=== PATIENT | male | born 1975 | race Caucasian/White ===

== ENCOUNTER 2021-04-19 17:30 | Inpatient (IN) ==
[2021-04-19] MEDS ORDERED: LABETALOL HCL IV 5 MG/ML 20ML IV STA ×2 (17:42→18:33)
[2021-04-19] MEDS ORDERED: DIPHTHERIA/TETANUS/PERTUSSIS 0.5 ML SYR/VIAL IM ONE (17:42)
[2021-04-19] MEDS ORDERED: SODIUM CHLORIDE 0.9% 1000ML 1,000 ML IV ONE (17:42)
--- NOTE | 2021-04-19 17:50 | Emergency Department Note ---
Impression & Plan Seizure, Hypertension, Acute hyponatremia, Noncompliance with medications ED Provider Note NAME: WILLEM SOLIS AGE: 45 SEX: M : 1975 ARRIVES VIA: Ambulance INFORMANT: [Patient][ems] ED PROVIDER(S): [Ammon Means MD] CHIEF COMPLAINT: Seizure HISTORY OF PRESENT ILLNESS: The patient is a 45-year-old male with a history of hypertension. He admits he has not taken his hypertension meds in a long time. 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 He was talking to coworkers and suddenly just collapsed. The patient had 4 minutes of tonic-clonic seizure-like activity. He was confused after. There was a reported post ictal phase. His mental status has cleared though compared to earlier. The patient denies any complaints currently. He is unsure of his last tetanus immunization. He denies any headache or neck pain or back pain. He has no chest pain. He cannot recall what happened. He remembers waking up before he got into the ambulance. The patient states that he has been in baseline health. He has had no cough or cold or congestion. He has had no previous seizures. There is no family history of seizure activity. The patient did bite his tongue. He did not lose bowel or urine continence. REVIEW OF SYSTEMS: See HPI for pertinent positives and negatives. A total of ten systems were reviewed and were otherwise negative. PMHx/PSHx: See Below SOCIAL HISTORY: See Below. PHYSICAL EXAM: GENERAL: Patient is in no acute distress. HEENT: No acute trauma, normocephalic atraumatic, mucous membranes moist, no nasal congestion, no scleral icterus. There are contusions and subtle abrasions to the tongue consistent with a bite. No laceration requiring repair. NECK: No stridor, no adenopathy, no meningismus, trachea is midline. LUNGS: Clear to auscultation bilaterally, no wheeze, no rhonchi, breath sounds equal. HEART: Tachycardic, regular rhythm, no murmurs. ABDOMEN: Soft, nontender, bowel sounds positive, no hernias, no peritonitis. EXTREMITIES: No cyanosis or edema, full range of motion of all the joints without pain or difficulty, no signs for acute trauma. NEUROLOGIC: He knew the year was 2020. He was wrong on the date. It is March and he thought it was January. He did know he was at the hospital, he knew his name. He was awake and interactive. No focal motor deficits. SKIN: No rash, no jaundice, no diaphoresis. DIFFERENTIAL DIAGNOSIS: Infection, dehydration, metabolic abnormality, hypo/hyperglycemia, electrolyte disturbance, anemia, hypoxia, cardiac sources, intracerebral event, seizure, medication noncompliance, uncontrolled hypertension, toxicologic issues, stroke, TIA, as well as other pathologies. EMERGENCY DEPARTMENT COURSE/PROCEDURES: ECG: Indication was tachycardia and seizure. The ECG shows a sinus tachycardia with an incomplete right bundle branch block. 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 The rate is 114. There is no ST elevation, no PVCs. QTC is 490. Compared to an ECG from 06 July 2018, the findings for septal infarct are no longer present, there is a criteria now for an inferior infarct. The rate has increased. Continuous Cardiac Monitoring: An order was placed for continuous cardiac monitoring. The monitor shows a rate of 124 with sinus tachycardia. Critical Care Note: I have personally spent 56 minutes of critical care time in the direct management of this patient. This includes bedside care, interpretation of diagnostic studies, and testing, discussion with consultants, patient, and family members, and other required patient management activities. This 56 minutes is in excess of all separately billable procedures. MEDICAL DECISION MAKING: There is no leukocytosis. There is a normal hemoglobin and platelet count. Renal panel testing shows a low sodium. No kidney failure. There were some elevated liver enzymes although, the bilirubin was normal. Total CK was slightly elevated at 800, consistent with his reported seizure activity. P atient appeared to be in a euthyroid state. Prolactin level was slightly elevated which would be consistent with seizure. ECG shows a sinus tachycardia, no acute ST elevation. Cardiac enzyme testing x1 is not consistent with acute cardiac injury. Brain CT shows no acute bleed or mass-effect. Chest x-ray does not show pneumonia or CHF. The patient presents after a seizure that lasted for about 4 minutes. He has abrasions and some small lacerations of the right posterior elbow. This wound was cleansed and dressed. The patient was given a tetanus booster IM. The patient's blood pressure was quite high. He received IV labetalol, a second dose of IV labetalol was given. He received IV hydralazine. Patient was given IV Keppra, 2000 mg. The patient has not had any further seizure-like activity. He now has a better blood pressure than when he first arrived. Given the seizure, given the uncontrolled hypertension, given the hyponatremia, I do think a hospital stay is warranted. I spoke with the patient and sample case porter. The on-call hospitalist was consulted. Past Med/Surg History Medical History Hypertension Family History (Updated 07/06/18 @ 16:21 by Steven Lora) Other Hypertension Social History Smoking Status: Current some day smoker Tobacco Type: Cigarettes Feels Safe at Home: Yes Allergies Allergies Allergy/AdvReac Type Severity Reaction Status Date / Time No Known Allergies Allergy NONE Verified 04/19/21 17:52 Home Meds Home Medications Medication Instructions Recorded Confirmed No Known Home Medications 04/19/21 04/19/21 Results & Data (ED) Vital Signs Vital Signs - 24 hr 04/19/21 17:34 04/19/21 17:38 04/19/21 18:00 Temperature 36.9 C Temperature Source Oral Pulse Rate 118 H Pulse Rate from SpO2 Sensor 118 H 92 H Respiratory Rate 19 Blood Pressure 245/140 H 177/114 H Blood Pressure [Right Arm] Blood Pressure Mean 175 135 Blood Pressure Mean [Right Arm] Blood Pressure Position [Right Arm] Pulse Oximetry 98 95 Oxygen Delivery Method Room Air Room Air Sepsis Recent Fever Within 48 Hours No Sepsis New/Unexplained Change in Mental Status No Sepsis Action Taken by Nursing No Action Required 04/19/21 18:30 04/19/21 18:43 04/19/21 19:01 Temperature Temperature Source Pulse Rate 92 H 90 Pulse Rate from SpO2 Sensor 93 H Respiratory Rate 17 Blood Pressure 169/117 H Blood Pressure [Right Arm] Blood Pressure Mean 134 Blood Pressure Mean [Right Arm] Blood Pressure Position [Right Arm] Pulse Oximetry 95 97 Oxygen Delivery Method Room Air Sepsis Recent Fever Within 48 Hours Sepsis New/Unexplained Change in Mental Status Sepsis Action Taken by Nursing 04/19/21 19:14 04/19/21 19:30 04/19/21 20:00 Temperature Temperature Source Pulse Rate 85 84 Pulse Rate from SpO2 Sensor 86 84 Respiratory Rate 17 16 Blood Pressure 224/159 H 178/105 H Blood Pressure [Right Arm] 201/118 H Blood Pressure Mean 180 129 Blood Pressure Mean [Right Arm] 145 Blood Pressure Position [Right Arm] Lying Pulse Oximetry 95 96 Oxygen Delivery Method Sepsis Recent Fever Within 48 Hours Sepsis New/Unexplained Change in Mental Status Sepsis Action Taken by Nursing 04/19/21 20:30 04/19/21 21:00 04/19/21 21:30 Temperature Temperature Source Pulse Rate 86 100 H 88 Pulse Rate from SpO2 Sensor 84 91 H Respiratory Rate 19 22 19 Blood Pressure 147/111 H 169/105 H 173/102 H Blood Pressure [Right Arm] Blood Pressure Mean 123 126 125 Blood Pressure Mean [Right Arm] Blood Pressure Position [Right Arm] Pulse Oximetry 98 94 Oxygen Delivery Method Sepsis Recent Fever Within 48 Hours Sepsis New/Unexplained Change in Mental Status Sepsis Action Taken by Nursing 04/19/21 22:00 04/19/21 22:30 04/19/21 23:02 Temperature Temperature Source Pulse Rate 80 90 87 Pulse Rate from SpO2 Sensor 93 H Respiratory Rate 14 22 20 Blood Pressure 162/104 H 140/108 H 176/107 H Blood Pressure [Right Arm] Blood Pressure Mean 123 118 Blood Pressure Mean [Right Arm] Blood Pressure Position [Right Arm] Pulse Oximetry 93 99 Oxygen Delivery Method Room Air Sepsis Recent Fever Within 48 Hours Sepsis New/Unexplained Change in Mental Status Sepsis Action Taken by Snf Medications Current Medication List: was personally reviewed by me Laboratory Data Attestation: I reviewed the patient's lab results. Result diagrams: 04/19/21 17:43 04/19/21 22:42 Lab Results 04/19/21 04/19/21 04/19/21 Range/Units 17:43 17:43 17:43 WBC 4.26 L (4.8-10.8) K/uL RBC 4.01 L (4.7-6.1) M/uL Hgb 14.4 (14.0-18.0) g/dL Hct 38.4 L (42-52) % MCV 95.8 (80-100) fL MCH 35.9 H (25-34) pg MCHC 37.5 H (32-36) g/dL RDW Std Deviation 43.6 (36.4-46.3) fL RDW Coeff of Carrie 12.4 (11.5-14.5) % Plt Count 165 (130-400) K/uL MPV 10.0 (7.4-10.4) fL Immature Gran % (Auto) 0.0 % Neut % (Auto) 74.9 % Lymph % (Auto) 14.6 % [place] % (Auto) 8.7 % Eos % (Auto) 0.2 % Baso % (Auto) 1.6 % Neut # (Auto) 3.19 (1.4-6.5) K/uL Lymph # (Auto) 0.62 L (1.2-3.4) K/uL [place] # (Auto) 0.37 (0.11-0.59) K/uL Eos # (Auto) 0.01 (0-0.5) K/uL Baso # (Auto) 0.07 (0-0.2) K/uL Immature Gran # (Auto) 0.00 (0.00-0.02) K/uL Sodium 128 L (136-145) mmol/L Potassium 3.5 (3.5-5.1) mmol/L Chloride 94 L (98-107) mmol/L Carbon Dioxide 24 (21-32) mmol/L Anion Gap 11.0 (3-11) BUN 6 L (7-18) mg/dl Creatinine 0.94 (0.6-1.4) mg/dl Est Cr Clr Drug Dosing 108.9 ml/min Est GFR ( Amer) 113.0 ml/min Est GFR (Non-Af Amer) 97.5 ml/min BUN/Creatinine Ratio 6.3 L (10-20) Glucose 104 H (70-99) mg/dl Osmolality (280-300) mOsm/kg Calcium 9.0 (8.5-10.1) mg/dl Magnesium 2.1 (1.8-2.4) mg/dl Total Bilirubin 0.9 (0.2-1) mg/dl AST 129 H (15-37) U/L ALT 132 H (12-78) U/L Alkaline Phosphatase 51 (45-117) U/L Total Creatine Kinase 831 H (39-308) U/L Troponin I < 0.015 (0-0.045) ng/ml Total Protein 7.6 (6.4-8.2) gm/dl Albumin 4.2 (3.4-5.0) gm/dl Globulin 3.4 (2.5-4.0) gm/dl Albumin/Globulin Ratio 1.3 (0.9-2) TSH 1.030 (0.300-4.500) uIu/ml Prolactin 20.48 ng/ml Urine Color Urine Appearance (Clear) Urine pH (4.5-7.5) Ur Specific [place] (1.000-1.030) Urine Protein (Negative) Urine Glucose (UA) (Negative) Urine Ketones (Negative) Urine Blood (Negative) Urine Nitrite (Negative) Urine Bilirubin (Negative) Urine Urobilinogen (Negative) Ur Leukocyte Esterase (Negative) Urine WBC (Auto) (0-5) /hpf Urine RBC (Auto) (0-4) /hpf U Hyaline Cast (Auto) (0-5) /lpf U Epithel Cells (Auto) (0-5) /lpf Urine Bacteria (Auto) (Negative) Urine Osmolality (500-800) mOsm/kg Ur Random Sodium mmol/L Urine Opiates Screen (Neg) Ur Methadone, Qual (Neg) Urine Barbiturates (Neg) Ur Phencyclidine (PCP) (Neg) U Amphetamin/Meth Scrn (Neg) MDMA (Ecstasy) Screen (Neg) U Benzodiazepines Scrn (Neg) Ur Cocaine Metabolite (Neg) U Marijuana (THC) Screen (Neg) COVID-19 Eval Order SARS-CoV-2 (PCR) (Negative) 04/19/21 04/19/21 04/19/21 Range/Units 17:43 18:00 18:00 WBC (4.8-10.8) K/uL RBC (4.7-6.1) M/uL Hgb (14.0-18.0) g/dL Hct (42-52) % MCV (80-100) fL MCH (25-34) pg MCHC (32-36) g/dL RDW Std Deviation (36.4-46.3) fL RDW Coeff of Carrie (11.5-14.5) % Plt Count (130-400) K/uL MPV (7.4-10.4) fL Immature Gran % (Auto) % Neut % (Auto) % Lymph % (Auto) % [place] % (Auto) % Eos % (Auto) % Baso % (Auto) % Neut # (Auto) (1.4-6.5) K/uL Lymph # (Auto) (1.2-3.4) K/uL [place] # (Auto) (0.11-0.59) K/uL Eos # (Auto) (0-0.5) K/uL Baso # (Auto) (0-0.2) K/uL Immature Gran # (Auto) (0.00-0.02) K/uL Sodium (136-145) mmol/L Potassium (3.5-5.1) mmol/L Chloride (98-107) mmol/L Carbon Dioxide (21-32) mmol/L Anion Gap (3-11) BUN (7-18) mg/dl Creatinine (0.6-1.4) mg/dl Est Cr Clr Drug Dosing ml/min Est GFR ( Amer) ml/min Est GFR (Non-Af Amer) ml/min BUN/Creatinine Ratio (10-20) Glucose (70-99) mg/dl Osmolality 267 L (280-300) mOsm/kg Calcium (8.5-10.1) mg/dl Magnesium (1.8-2.4) mg/dl Total Bilirubin (0.2-1) mg/dl AST (15-37) U/L ALT (12-78) U/L Alkaline Phosphatase (45-117) U/L Total Creatine Kinase (39-308) U/L Troponin I (0-0.045) ng/ml Total Protein (6.4-8.2) gm/dl Albumin (3.4-5.0) gm/dl Globulin (2.5-4.0) gm/dl Albumin/Globulin Ratio (0.9-2) TSH (0.300-4.500) uIu/ml Prolactin ng/ml Urine Color Urine Appearance (Clear) Urine pH (4.5-7.5) Ur Specific [place] (1.000-1.030) Urine Protein (Negative) Urine Glucose (UA) (Negative) Urine Ketones (Negative) Urine Blood (Negative) Urine Nitrite (Negative) Urine Bilirubin (Negative) Urine Urobilinogen (Negative) Ur Leukocyte Esterase (Negative) Urine WBC (Auto) (0-5) /hpf Urine RBC (Auto) (0-4) /hpf U Hyaline Cast (Auto) (0-5) /lpf U Epithel Cells (Auto) (0-5) /lpf Urine Bacteria (Auto) (Negative) Urine Osmolality (500-800) mOsm/kg Ur Random Sodium mmol/L Urine Opiates Screen (Neg) Ur Methadone, Qual (Neg) Urine Barbiturates (Neg) Ur Phencyclidine (PCP) (Neg) U Amphetamin/Meth Scrn (Neg) MDMA (Ecstasy) Screen (Neg) U Benzodiazepines Scrn (Neg) Ur Cocaine Metabolite (Neg) U Marijuana (THC) Screen (Neg) COVID-19 Eval Order Covid19 at [facility] SARS-CoV-2 (PCR) NEGATIVE (Negative) 04/19/21 04/19/21 04/19/21 Range/Units 20:10 20:10 20:10 WBC (4.8-10.8) K/uL RBC (4.7-6.1) M/uL Hgb (14.0-18.0) g/dL Hct (42-52) % MCV (80-100) fL MCH (25-34) pg MCHC (32-36) g/dL RDW Std Deviation (36.4-46.3) fL RDW Coeff of Carrie (11.5-14.5) % Plt Count (130-400) K/uL MPV (7.4-10.4) fL Immature Gran % (Auto) % Neut % (Auto) % Lymph % (Auto) % [place] % (Auto) % Eos % (Auto) % Baso % (Auto) % Neut # (Auto) (1.4-6.5) K/uL Lymph # (Auto) (1.2-3.4) K/uL [place] # (Auto) (0.11-0.59) K/uL Eos # (Auto) (0-0.5) K/uL Baso # (Auto) (0-0.2) K/uL Immature Gran # (Auto) (0.00-0.02) K/uL Sodium (136-145) mmol/L Potassium (3.5-5.1) mmol/L Chloride (98-107) mmol/L Carbon Dioxide (21-32) mmol/L Anion Gap (3-11) BUN (7-18) mg/dl Creatinine (0.6-1.4) mg/dl Est Cr Clr Drug Dosing ml/min Est GFR ( Amer) ml/min Est GFR (Non-Af Amer) ml/min BUN/Creatinine Ratio (10-20) Glucose (70-99) mg/dl Osmolality (280-300) mOsm/kg Calcium (8.5-10.1) mg/dl Magnesium (1.8-2.4) mg/dl Total Bilirubin (0.2-1) mg/dl AST (15-37) U/L ALT (12-78) U/L Alkaline Phosphatase (45-117) U/L Total Creatine Kinase (39-308) U/L Troponin I (0-0.045) ng/ml Total Protein (6.4-8.2) gm/dl Albumin (3.4-5.0) gm/dl Globulin (2.5-4.0) gm/dl Albumin/Globulin Ratio (0.9-2) TSH (0.300-4.500) uIu/ml Prolactin ng/ml Urine Color Yellow Urine Appearance Clear (Clear) Urine pH 7.0 (4.5-7.5) Ur Specific [place] 1.009 (1.000-1.030) Urine Protein 2+ H (Negative) Urine Glucose (UA) Negative (Negative) Urine Ketones 1+ H (Negative) Urine Blood Trace H (Negative) Urine Nitrite Negative (Negative) Urine Bilirubin Negative (Negative) Urine Urobilinogen Negative (Negative) Ur Leukocyte Esterase Negative (Negative) Urine WBC (Auto) 1-5 (0-5) /hpf Urine RBC (Auto) 0-4 (0-4) /hpf U Hyaline Cast (Auto) 1-5 (0-5) /lpf U Epithel Cells (Auto) 5-10 H (0-5) /lpf Urine Bacteria (Auto) Negative (Negative) Urine Osmolality 296 L (500-800) mOsm/kg Ur Random Sodium 63 mmol/L Urine Opiates Screen (Neg) Ur Methadone, Qual (Neg) Urine Barbiturates (Neg) Ur Phencyclidine (PCP) (Neg) U Amphetamin/Meth Scrn (Neg) MDMA (Ecstasy) Screen (Neg) U Benzodiazepines Scrn (Neg) Ur Cocaine Metabolite (Neg) U Marijuana (THC) Screen (Neg) COVID-19 Eval Order SARS-CoV-2 (PCR) (Negative) 08/31/21 08/31/21 Range/Units 20:10 22:42 WBC (4.8-10.8) K/uL RBC (4.7-6.1) M/uL Hgb (14.0-18.0) g/dL Hct (42-52) % MCV (80-100) fL MCH (25-34) pg MCHC (32-36) g/dL RDW Std Deviation (36.4-46.3) fL RDW Coeff of Carrie (11.5-14.5) % Plt Count (130-400) K/uL MPV (7.4-10.4) fL Immature Gran % (Auto) % Neut % (Auto) % Lymph % (Auto) % [place] % (Auto) % Eos % (Auto) % Baso % (Auto) % Neut # (Auto) (1.4-6.5) K/uL Lymph # (Auto) (1.2-3.4) K/uL [place] # (Auto) (0.11-0.59) K/uL Eos # (Auto) (0-0.5) K/uL Baso # (Auto) (0-0.2) K/uL Immature Gran # (Auto) (0.00-0.02) K/uL Sodium 128 L (136-145) mmol/L Potassium (3.5-5.1) mmol/L Chloride (98-107) mmol/L Carbon Dioxide (21-32) mmol/L Anion Gap (3-11) BUN (7-18) mg/dl Creatinine (0.6-1.4) mg/dl Est Cr Clr Drug Dosing ml/min Est GFR ( Amer) ml/min Est GFR (Non-Af Amer) ml/min BUN/Creatinine Ratio (10-20) Glucose (70-99) mg/dl Osmolality (280-300) mOsm/kg Calcium (8.5-10.1) mg/dl Magnesium (1.8-2.4) mg/dl Total Bilirubin (0.2-1) mg/dl AST (15-37) U/L ALT (12-78) U/L Alkaline Phosphatase (45-117) U/L Total Creatine Kinase (39-308) U/L Troponin I (0-0.045) ng/ml Total Protein (6.4-8.2) gm/dl Albumin (3.4-5.0) gm/dl Globulin (2.5-4.0) gm/dl Albumin/Globulin Ratio (0.9-2) TSH (0.300-4.500) uIu/ml Prolactin ng/ml Urine Color Urine Appearance (Clear) Urine pH (4.5-7.5) Ur Specific [place] (1.000-1.030) Urine Protein (Negative) Urine Glucose (UA) (Negative) Urine Ketones (Negative) Urine Blood (Negative) Urine Nitrite (Negative) Urine Bilirubin (Negative) Urine Urobilinogen (Negative) Ur Leukocyte Esterase (Negative) Urine WBC (Auto) (0-5) /hpf Urine RBC (Auto) (0-4) /hpf U Hyaline Cast (Auto) (0-5) /lpf U Epithel Cells (Auto) (0-5) /lpf Urine Bacteria (Auto) (Negative) Urine Osmolality (500-800) mOsm/kg Ur Random Sodium mmol/L Urine Opiates Screen Neg (Neg) Ur Methadone, Qual Neg (Neg) Urine Barbiturates Neg (Neg) Ur Phencyclidine (PCP) Neg (Neg) U Amphetamin/Meth Scrn Neg (Neg) MDMA (Ecstasy) Screen Neg (Neg) U Benzodiazepines Scrn Neg (Neg) Ur Cocaine Metabolite Neg (Neg) U Marijuana (THC) Screen Neg (Neg) COVID-19 Eval Order SARS-CoV-2 (PCR) (Negative) Administered Medications Discontinued Medications Diphtheria/Pertussis/Tetanus Vacc (Diphtheria/Tetanus/Pertussis 0.5 Ml Syr/Vial) 0.5 ml IM .ONCE ONE Stop: 04/19/21 17:43 Last Admin: 04/19/21 17:54 Dose: 0.5 ml Documented by: [id number] Gabapentin (Gabapentin 800 Mg Tab) 1,200 mg PO NOW STA Stop: 04/19/21 22:28 Last Admin: 04/19/21 22:38 Dose: 1,200 mg Documented by: [id number] Hydralazine HCl (Hydralazine Hcl 20 Mg/Ml Vial) 10 mg IV NOW STA Stop: 04/19/21 19:37 Last Admin: 04/19/21 20:09 Dose: 10 mg Documented by: [id number] Sodium Chloride (Nss 1000ml) 1,000 mls @ 999 mls/hr IV .Q1H1M ONE Stop: 04/19/21 18:42 Last Infusion: 04/19/21 19:11 Dose: 0 mls/hr Documented by: [id number] Admin: 04/19/21 17:52 Dose: 999 mls/hr Documented by: [id number] Levetiracetam 2,000 mg/ Sodium (Chloride) 270 mls @ 999 mls/hr IV NOW STA Stop: 04/19/21 17:58 Last Infusion: 04/19/21 19:11 Dose: 0 mls/hr Documented by: [id number] Admin: 04/19/21 17:58 Dose: 999 mls/hr Documented by: [id number] Thiamine HCl 100 mg/ Syringe 10 mls @ 2 mls/min IV NOW STA Stop: 04/19/21 21:03 Last Admin: 04/19/21 21:18 Dose: 2 mls/min Documented by: [id number] Labetalol HCl (Labetalol Hcl Iv 5 Mg/Ml 20ml) 10 mg IV NOW STA Stop: 04/19/21 17:43 Last Admin: 04/19/21 17:51 Dose: 10 mg Documented by: [id number] Cosigned by: [id number] Labetalol HCl (Labetalol Hcl Iv 5 Mg/Ml 20ml) 10 mg IV NOW STA Stop: 04/19/21 18:34 Last Admin: 04/19/21 19:13 Dose: 10 mg Documented by: [id number] Cosigned by: [id number] Lisinopril (Lisinopril 5 Mg Tab) 5 mg PO NOW ONE Stop: 04/19/21 22:28 Last Admin: 04/19/21 22:37 Dose: 5 mg Documented by: [id number] Imaging Data Radiologist's Impression: Head CT 04/19/21 17:42 CT SCAN OF THE BRAIN WITHOUT IV CONTRAST CLINICAL HISTORY: Fall. Seizure. COMPARISON STUDY: CT of the brain dated 07/06/2018. TECHNIQUE: Unenhanced axial CT scan of the brain is performed from the vertex to the skull base. A dose lowering technique was utilized adhering to the principles of ALARA. CT DOSE: 638.56 mGycm FINDINGS: Brain parenchyma: There is mild age advanced involutional change as well as mild nonspecific white matter change. There is no hemorrhage, mass effect, or evidence of acute territorial ischemia by CT criteria. Morales-white matter differentiation is preserved. No extra-axial fluid collection is seen. Ventricles, sulci, cisterns: Normal in configuration. Intracranial vasculature: The visualized intracranial vasculature at the skull base is normal in appearance. Calvarium: Unremarkable. Sinuses and mastoids: The visualized paranasal sinuses are clear. The mastoid air cells are well pneumatized. Orbits: The bony orbits are grossly intact. IMPRESSION: There is no hemorrhage, mass effect, or evidence of acute territorial ischemia by CT criteria. ACT 112: Negative or not required by law. Electronically signed by: Ammon Grayson M.D. 04/19/2021 7:16 PM Chest X-Ray 04/19/21 17:43 SINGLE VIEW CHEST CLINICAL HISTORY: Generalized weakness. FINDINGS: An AP, portable, upright chest radiograph is compared to study dated 07/06/2018. The cardiomediastinal silhouette is unremarkable. The lungs appear hyperinflated, likely due to good inspiratory result. The lungs and pleural spaces are clear. No pneumothorax is seen. The bony thorax is grossly intact. IMPRESSION: No active disease in the chest. ACT 112: Negative or not required by law. Electronically signed by: Ammon Grayson M.D. 04/19/2021 6:38 PM Head Trauma GCS Score: 14 Discharge Plan Visit Data Chief Complaint: Seizure ED Provider: Ammon Means Discharge Problem: Seizure, Hypertension, Acute hyponatremia, Noncompliance with medications Patient Disposition: Admitted As Inpatient Condition: Fair Discharge Instructions Interventions: ED Discharge Assessment Last Done: 04/19/21 23:02 Forms Stand Alone Forms: [facility] Prescriptions Prescriptions: No Action No Known Home Medications RF: 0 Referrals Referrals: PCP,NO [Primary Care Provider] -
[2021-04-19 18:27] LABS: Basophils # (auto) 0.07 K/uL (0-0.2); Basophils % (auto) 1.6 %; Eosinophils # (auto) 0.01 K/uL (0-0.5); Eosinophils % (auto) 0.2 %; Hematocrit (blood only) 38.4 % (42-52); Hemoglobin 14.4 g/dL (14.0-18.0); Lymphocytes # (auto) 0.62 K/uL (1.2-3.4); Lymphocytes % (auto) 14.6 %; Mean Corpuscular Hemoglobin 35.9 pg (25-34); Mean Corpuscular Hgb Conc 37.5 g/dL (32-36); Mean Corpuscular Volume 95.8 fL (80-100); Monocytes # (auto) 0.37 K/uL (0.11-0.59); Monocytes % (auto) 8.7 %; Neutrophils # (auto) 3.19 K/uL (1.4-6.5); Neutrophils % (auto) 74.9 %; Platelet Count 165 K/uL (130-400); RDW Coefficient of Variation 12.4 % (11.5-14.5); RDW Standard Deviation 43.6 fL (36.4-46.3); Red Blood Count 4.01 M/uL (4.7-6.1); White Blood Count 4.26 K/uL (4.8-10.8)
--- NOTE | 2021-04-19 18:40 | XRay Report ---
SINGLE VIEW CHEST CLINICAL HISTORY: Generalized weakness. FINDINGS: An AP, portable, upright chest radiograph is compared to study dated 07/06/2018. The cardio mediastinal silhouette is unremarkable. The lungs appear hyperinflated, likely due to good inspirator y result. The lungs and pleural spaces are clear. No pneumothorax is seen. The bony thorax is grossly intact. IMPRESSION: No active disease in the chest. ACT 112: Negative or not required by law. Electronically signed by: Ammon Grayson M.D. 04/19/2021 6:38 PM
[2021-04-19 18:44] LABS: Alanine Aminotransferase 132 U/L (12-78); Albumin Level 4.2 gm/dl (3.4-5.0); Aspartate Aminotransferase 129 U/L (15-37); BUN Creatinine Ratio 6.3 (10-20); Blood Urea Nitrogen 6 mg/dl (7-18); Carbon Dioxide 24 mmol/L (21-32); Chloride 94 mmol/L (98-107); Creatinine Clr Calc Pharmacy 108.9 ml/min; Est GFR (Non-African American) 97.5 ml/min; Glucose 104 mg/dl (70-99); Magnesium 2.1 mg/dl (1.8-2.4); Potassium 3.5 mmol/L (3.5-5.1); Sodium 128 mmol/L (136-145)
[2021-04-19 18:55] LABS: Albumin Globulin Ratio 1.3 (0.9-2); Alkaline Phosphatase 51 U/L (45-117); Bilirubin,Total 0.9 mg/dl (0.2-1); Creatine Kinase 831 U/L (39-308); Globulin 3.4 gm/dl (2.5-4.0); Total Protein 7.6 gm/dl (6.4-8.2); Troponin I < 0.015 ng/ml (0-0.045)
--- NOTE | 2021-04-19 19:18 | CT Scan Report ---
CT SCAN OF THE BRAIN WITHOUT IV CONTRAST CLINICAL HISTORY: Fall. Seizure. COMPARISON STUDY: CT of the brain dated 07/06/2018. TECHNIQUE: Unenhanced axial CT scan of the brain is performed from the vertex to the skull base. A d ose lowering technique was utilized adhering to the principles of ALARA. CT DOSE: 638.56 mGycm FINDINGS: Brain parenchyma: There is mild age advanced involutional change as well as mild nonspecific white ma tter change. There is no hemorrhage, mass effect, or evidence of acute territorial ischemia by CT cri teria. Morales-white matter differentiation is preserved. No extra-axial fluid collection is seen. Ventricles, sulci, cisterns: Normal in configuration. Intracranial vasculature: The visualized intracranial vasculature at the skull base is normal in appe arance. Calvarium: Unremarkable. Sinuses and mastoids: The visualized paranasal sinuses are clear. The mastoid air cells are well pneu matized. Orbits: The bony orbits are grossly intact. IMPRESSION: There is no hemorrhage, mass effect, or evidence of acute territorial ischemia by CT crit ersolomon. ACT 112: Negative or not required by law. Electronically signed by: Ammon Grayson M.D. 04/19/2021 7:16 PM
[2021-04-19] MEDS ORDERED: hydrALAZINE HCL 20 MG/ML VIAL IV STA (19:36)
[2021-04-19] MEDS ORDERED: LORazepam 1 MG/2 ML VIAL IV PRN ×2 (20:41→23:29)
[2021-04-19 20:43] LABS: Appearance Urine Clear (Clear); Bacteria Urine Automated Negative (Negative); Bilirubin Urine Negative (Negative); Blood Urine Trace (Negative); Color Urine Yellow; Glucose Urine UA Negative (Negative); Ketones Urine 1+ (Negative); Leukocyte Esterase Urine Negative (Negative); Nitrite Urine Negative (Negative); Protein Urine 2+ (Negative); RBC Urine Automated 0-4 /hpf (0-4); Specific Gravity Urine 1.009 (1.000-1.030); Urobilinogen Urine Negative (Negative)
[2021-04-19] MEDS ORDERED: THIAMINE HCL 100 MG in SYRINGE 9 ML IV STA (20:59)
[2021-04-19 21:22] LABS: Amphetamines+Metham, Urine Neg (Neg); Barbiturates, Urine Neg (Neg); Benzodiazepine, Urine Neg (Neg); Cocaine, Urine Neg (Neg); MDMA (Ecstacy), Urine Neg (Neg); Methadone, Urine Neg (Neg); Opiate, Urine Neg (Neg); Phencyclidine, Urine Neg (Neg)
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
[2021-04-19] MEDS ORDERED: lisinopril 5 MG TAB PO ONE (22:27)
[2021-04-19] MEDS ORDERED: GABAPENTIN 800 MG TAB PO STA (22:27)
[2021-04-19] MEDS ORDERED: GABAPENTIN 1200MG ALCOHOL WITHDRAWAL LOAD PO STA (22:31)
[2021-04-19] MEDS ORDERED: LORazepam 2 MG/4 ML VIAL IV PRN (23:29)
[2021-04-19] MEDS ORDERED: ATIVAN IV ALCOHOL WITHDRAWL IV PRN (23:29)
[2021-04-19] MEDS ORDERED: oxyCODONE HCL IR 5 MG TAB (IMMEDIATE RELEASE) PO PRN (23:29)
[2021-04-19] MEDS ORDERED: PROMETHAZINE HCL 12.5 MG in SODIUM CHLORIDE 0.9% 50 ML IV PRN (23:29)
[2021-04-19] MEDS ORDERED: LORazepam 3 MG/6 ML VIAL IV PRN (23:29)
[2021-04-19] MEDS ORDERED: ACETAMINOPHEN 325 MG TAB PO PRN (23:29)
[2021-04-20] MEDS: FOLIC ACID 1 MG TAB PO SCH ×2 (00:24→08:20)
[2021-04-20] MEDS: THIAMINE HCL 100 MG TAB PO SCH ×2 (00:24→08:20)
[2021-04-20] MEDS ORDERED: SODIUM CHLORIDE 0.9% 500 ML IV ONE (01:08)
[2021-04-20] MEDS ORDERED: GADOBUTROL 65ML VIAL IV ONE (01:11)
[2021-04-20 06:11] LABS: Basophils # (auto) 0.05 K/uL (0-0.2); Basophils % (auto) 0.7 %; Eosinophils # (auto) 0.06 K/uL (0-0.5); Eosinophils % (auto) 0.8 %; Hematocrit (blood only) 40.1 % (42-52); Hemoglobin 14.2 g/dL (14.0-18.0); Immature Granulocytes # (auto) 0.02 K/uL (0.00-0.02); Immature Granulocytes % (auto) 0.3 %; Lymphocytes # (auto) 1.39 K/uL (1.2-3.4); Lymphocytes % (auto) 19.6 %; Mean Corpuscular Hemoglobin 33.8 pg (25-34); Mean Corpuscular Hgb Conc 35.4 g/dL (32-36); Mean Corpuscular Volume 95.5 fL (80-100); Mean Platelet Volume 10.2 fL (7.4-10.4); Monocytes % (auto) 12.7 %; Neutrophils # (auto) 4.66 K/uL (1.4-6.5); Neutrophils % (auto) 65.9 %; Platelet Count 173 K/uL (130-400); RDW Coefficient of Variation 12.6 % (11.5-14.5); RDW Standard Deviation 44.1 fL (36.4-46.3); White Blood Count 7.08 K/uL (4.8-10.8)
[2021-04-20] MEDS: GABAPENTIN 600 MG TAB PO SCH ×3 (06:28→20:57)
[2021-04-20 06:52] LABS: Albumin Level 3.9 gm/dl (3.4-5.0); BUN Creatinine Ratio 11.1 (10-20); Calcium 8.9 mg/dl (8.5-10.1); Creatinine Clr Calc Pharmacy 164.8 ml/min; Est GFR (African American) 139.8 ml/min; Est GFR (Non-African American) 120.6 ml/min; Potassium 3.2 mmol/L (3.5-5.1)
[2021-04-20 06:57] LABS: Albumin Globulin Ratio 1.1 (0.9-2); Bilirubin,Total 1.3 mg/dl (0.2-1); Globulin 3.5 gm/dl (2.5-4.0); Total Protein 7.4 gm/dl (6.4-8.2)
--- NOTE | 2021-04-20 07:10 | Magnetic Resonance Report ---
MRI OF THE BRAIN WITHOUT AND WITH IV CONTRAST SEIZURE PROTOCOL CLINICAL HISTORY: Possible seizure. COMPARISON STUDY: Head CT April 19, 2021. TECHNIQUE: Utilizing a 1.5 Whitney magnet and dedicated coil, multiplanar, multiecho imaging of the br ain was performed pre and postcontrast administration. IV administration of 7.5 mL of Gadavist contr ast was uneventful. Thin cut coronal T2 imaging was performed according to seizure protocol. FINDINGS: This exam is mildly compromised by motion artifact however remains diagnostic. There are no foci of restricted diffusion to suggest acute infarct. No acute intracranial hemorrhage, midline fatoumata ft or mass effect is present. Cerebral atrophy is noted, greater than expected for age. There is no i ntracranial mass or pathologic enhancement. A few punctate white matter T2 hyperintense foci are note d. There is no MR evidence for mesial temporal sclerosis. Flow-voids for the major intracranial vesse ls are present. Calvarial signal is normal. There is no evidence for sinusitis. There is no mastoid f luid. IMPRESSION: 1. No acute intracranial findings. 2. No intracranial mass or pathologic enhancement. 3. Cerebral atrophy, greater than expected for age. 4. A few punctate white matter T2 hyperintense foci which favor mild small vessel disease. ACT 112: Negative or not required by law. Electronically signed by: Renato Yates M.D. 04/20/2021 7:08 AM
[2021-04-20] MEDS: levETIRAcetam 500 MG TAB PO SCH ×2 (08:20→20:58)
[2021-04-20] MEDS: MULTIVITAMIN TAB PO SCH (08:20)
[2021-04-20] MEDS ORDERED: lisinopril 5 MG TAB PO SCH (09:00)
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
[2021-04-20] MEDS ORDERED: lisinopril 5 MG TAB PO ONE (12:36)
--- NOTE | 2021-04-20 12:36 | Electroencephalogram ---
EEG Procedure Note Date of Service April 20, 2021 Start / End Times Start Time: 10 4 5 End Time: 1105 Referring Physician Artemio Sprague MD History Seizure Home Medication List Medication Instructions Recorded Confirmed Type No Known Home Medications 04/19/21 04/19/21 History Inpatient Medication List Folic Acid (Folic Acid 1 Mg Tab) [facility] [place]: 05/19/21 23:44 Last Admin: 04/20/21 08:20 Dose: 1 mg Documented by: [id number] Admin: 04/20/21 00:24 Dose: 1 mg Documented by: [id number] Levetiracetam (Levetiracetam 500 Mg Tab) 500 mg PO BID [facility] Stop: 05/20/21 08:59 Last Admin: 04/20/21 08:20 Dose: 500 mg Documented by: [id number] Lisinopril (Lisinopril 5 Mg Tab) [facility] [place]: 05/20/21 08:59 Last Admin: 04/20/21 08:20 Dose: 5 mg Documented by: [id number] Multivitamins (Multivitamin Tab) [address] [facility] Stop: 05/20/21 08:59 Last Admin: 04/20/21 08:20 Dose: 1 tab Documented by: [id number] Thiamine HCl (Thiamine Hcl 100 Mg Tab) [address] [facility] Stop: 05/19/21 23:44 Last Admin: 04/20/21 08:20 Dose: 100 mg Documented by: [id number] Admin: 04/20/21 00:24 Dose: 100 mg Documented by: [id number] Discontinued Medications Diphtheria/Pertussis/Tetanus Vacc (Diphtheria/Tetanus/Pertussis 0.5 Ml Syr/Vial) 0.5 ml IM .ONCE ONE Stop: 04/19/21 17:43 Last Admin: 04/19/21 17:54 Dose: 0.5 ml Documented by: [id number] Gabapentin (Gabapentin 800 Mg Tab) 1,200 mg PO NOW STA Stop: 04/19/21 22:28 Last Admin: 04/19/21 22:38 Dose: 1,200 mg Documented by: [id number] Gabapentin (Gabapentin 1200mg Alcohol Withdrawal Load) 1 ea PO NOW STA; Protocol Stop: 04/19/21 22:32 Last Admin: 04/20/21 00:26 Dose: 1 ea Documented by: [id number] Gabapentin (Gabapentin 600 Mg Tab) 600 mg PO Q6H [facility] Stop: 04/20/21 12:01 Last Admin: 04/20/21 06:28 Dose: 600 mg Documented by: [id number] Gadobutrol (Gadobutrol 65ml Vial) 7.5 ml IV ONCE ONE Stop: 04/20/21 01:12 Last Admin: 04/20/21 01:11 Dose: 7.5 ml Documented by: [id number] Hydralazine HCl (Hydralazine Hcl 20 Mg/Ml Vial) 10 mg IV NOW STA Stop: 04/19/21 19:37 Last Admin: 04/19/21 20:09 Dose: 10 mg Documented by: [id number] Sodium Chloride (Nss 1000ml) 1,000 mls @ 999 mls/hr IV .Q1H1M ONE Stop: 04/19/21 18:42 Last Infusion: 04/19/21 19:11 Dose: 0 mls/hr Documented by: [id number] Admin: 04/19/21 17:52 Dose: 999 mls/hr Documented by: [id number] Levetiracetam 2,000 mg/ Sodium (Chloride) 270 mls @ 999 mls/hr IV NOW STA Stop: 04/19/21 17:58 Last Infusion: 04/19/21 19:11 Dose: 0 mls/hr Documented by: [id number] Admin: 04/19/21 17:58 Dose: 999 mls/hr Documented by: [id number] Thiamine HCl 100 mg/ Syringe 10 mls @ 2 mls/min IV NOW STA Stop: 04/19/21 21:03 Last Admin: 04/19/21 21:18 Dose: 2 mls/min Documented by: [id number] Sodium Chloride (Nss) 500 mls @ 50 mls/hr IV .Q10H ONE Stop: 04/20/21 11:07 Last Infusion: 04/20/21 11:26 Dose: 0 mls/hr Documented by: [id number] Admin: 04/20/21 01:23 Dose: 50 mls/hr Documented by: [id number] Labetalol HCl (Labetalol Hcl Iv 5 Mg/Ml 20ml) 10 mg IV NOW STA Stop: 04/19/21 17:43 Last Admin: 04/19/21 17:51 Dose: 10 mg Documented by: [id number] Cosigned by: [id number] Labetalol HCl (Labetalol Hcl Iv 5 Mg/Ml 20ml) 10 mg IV NOW STA Stop: 04/19/21 18:34 Last Admin: 04/19/21 19:13 Dose: 10 mg Documented by: [id number] Cosigned by: [id number] Lisinopril (Lisinopril 5 Mg Tab) 5 mg PO NOW ONE Stop: 04/19/21 22:28 Last Admin: 04/19/21 22:37 Dose: 5 mg Documented by: [id number] Description This is a 21 electrode EEG with a single channel dedicated to limited EKG. The electrodes were placed in accordance with the International 10-20 system. This EEG is a bedside recording and is of good technical quality with no muscle movement artifact of significance. It was performed during wakefulness with photic stimulation. Simultaneous video analysis of patient movement behavior was obtained. Under these conditions there is evidence for normal background alpha rhythm of up to 9 to 10 Hz maximum frequency of up to 30 V of maximal amplitude. Polymorphic mid frequency modest voltage theta activity seen symmetrically primarily over the central regions. Beta activity seen bifrontally Photic stimulation evoked no cord changes No potentially epileptogenic discharges are seen Interpretation This EEG is essentially normal during wakefulness Clinical Correlation This is a normal EEG during wakefulness with no evidence for a focal or generalized encephalopathy and no evidence for potentially epileptogenic activity Artemio Sprague MD
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
[2021-04-20] MEDS ORDERED: POTASSIUM CHLORIDE CRTAB 20 MEQ TABCR PO STA (15:29)
--- NOTE | 2021-04-21 05:35 | Electrocardiogram Report ---
Test Reason : Blood Pressure : / mmHG Vent. Rate : 114 BPM Atrial Rate : 114 BPM P-R Int : 156 ms QRS Dur : 104 ms QT Int : 356 ms P-R-T Axes : 072 -53 065 degrees QTc Int : 490 ms Sinus tachycardia Possible Left atrial enlargement Incomplete right bundle branch block Left anterior fascicular block Inferior infarct , age undetermined Abnormal ECG When compared with ECG of 06-JUL-2018 13:48, Criteria for Septal infarct are no longer Present Inferior infarct is now Present Confirmed by Milan Duggan ([id number]) on 04/21/2021 5:34:47 AM Referred By: REFERRED SELF Confirmed By:Milan Duggan
[2021-04-21] MEDS: GABAPENTIN 600 MG TAB PO SCH (05:46)
[2021-04-21 06:56] LABS: Hematocrit (blood only) 42.6 % (42-52); Hemoglobin 14.9 g/dL (14.0-18.0); Mean Corpuscular Hemoglobin 34.2 pg (25-34); Mean Corpuscular Volume 97.7 fL (80-100); Mean Platelet Volume 10.8 fL (7.4-10.4); Platelet Count 173 K/uL (130-400); RDW Coefficient of Variation 12.5 % (11.5-14.5); RDW Standard Deviation 44.4 fL (36.4-46.3); Red Blood Count 4.36 M/uL (4.7-6.1); White Blood Count 6.71 K/uL (4.8-10.8)
[2021-04-21 07:29] LABS: Albumin Globulin Ratio 1.2 (0.9-2); Albumin Level 4.3 gm/dl (3.4-5.0); BUN Creatinine Ratio 13.4 (10-20); Bilirubin,Total 1.4 mg/dl (0.2-1); Calcium 9.3 mg/dl (8.5-10.1); Creatinine Clr Calc Pharmacy 135.5 ml/min; Est GFR (African American) 129.1 ml/min; Est GFR (Non-African American) 111.4 ml/min; Globulin 3.6 gm/dl (2.5-4.0); Magnesium 2.2 mg/dl (1.8-2.4); Phosphorus 2.5 mg/dl (2.5-4.9); Potassium 4.3 mmol/L (3.5-5.1); Total Protein 7.9 gm/dl (6.4-8.2)
[2021-04-21] MEDS: FOLIC ACID 1 MG TAB PO SCH (08:32)
[2021-04-21] MEDS: MULTIVITAMIN TAB PO SCH (08:32)
[2021-04-21] MEDS: THIAMINE HCL 100 MG TAB PO SCH (08:32)
[2021-04-21] MEDS: levETIRAcetam 500 MG TAB PO SCH (08:32)
[2021-04-21] MEDS ORDERED: amLODIPine BESYLATE 5 MG TAB PO SCH (09:00)
[2021-04-21] MEDS ORDERED: lisinopril 10 MG TAB PO SCH (09:00)
[2021-04-21] MEDS ORDERED: lisinopril 20 MG TAB PO SCH (09:00)
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
[2021-04-22] MEDS ORDERED: GABAPENTIN 600 MG TAB PO SCH
[2021-04-23] MEDS ORDERED: GABAPENTIN 600 MG TAB PO SCH (12:00)
== END 2021-04-21 14:07 | disposition left against medical advice (07) | DRG 101 ==
LOC: ED 17:30 → 2S 22:27
DX: F10.239 Alcohol dependence with withdrawal, unspecified; Z91.14 Patient's other noncompliance with medication regimen; F17.210 Nicotine dependence, cigarettes, uncomplicated; E87.1 Hypo-osmolality and hyponatremia; Z82.49 Family history of ischemic heart disease and other diseases of the circulatory system; I16.9 Hypertensive crisis, unspecified; R56.9 Unspecified convulsions; M62.82 Rhabdomyolysis